=== PATIENT | female | born 1970 | race Caucasian/White ===

== ENCOUNTER 2020-05-14 23:11 | Emergency (ER) | payer MEDICAID ==
[~2020-05-14 23:11] MED LIST: BUSP5TAB51 PO; LURA40TA PO; VENL37.572 PO
[2020-05-14 23:25] VITALS: BP 144/79
[2020-05-14] MEDS ORDERED: HALOPERIDOL LACTATE 5 MG/ML INJ VIAL IM ONE (23:45)
[2020-05-14] MEDS ORDERED: LORazepam 2MG/ML-1ML VIAL IM ONE (23:45)
[2020-05-14] MEDS ORDERED: diphenhdrAMINE HCL 50 MG/1 ML VL IM ONE (23:45)
== END 2020-05-14 23:41 | disposition left against medical advice (07) ==
LOC: ER 23:11
DX: F31.9 Bipolar disorder, unspecified (principal); Z53.21 Procedure and treatment not carried out due to patient leaving prior to being seen by health care provider

== ENCOUNTER 2020-05-15 04:17 | Emergency (ER) | payer MEDICAID ==
[~2020-05-15] VITALS: Ht 165.1 cm; Wt 96.8 kg
[2020-05-15] MEDS ORDERED: HALOPERIDOL 5 MG TAB PO ONE (06:45)
[2020-05-15] MEDS ORDERED: diphenhdrAMINE HCL 25 MG CAP PO ONE (06:45)
[2020-05-15] MEDS ORDERED: HALOPERIDOL LACTATE 5 MG/ML INJ VIAL IM ONE ×2 (13:15→19:45)
[2020-05-15] MEDS ORDERED: diphenhdrAMINE HCL 50 MG/1 ML VL IM ONE ×2 (13:15→19:45)
[2020-05-15] MEDS ORDERED: LORazepam 2MG/ML-1ML VIAL IM ONE (19:45)
[2020-05-16 07:17] VITALS: BP 138/79
[2020-05-16] MEDS ORDERED: LORazepam 0.5 MG TAB PO ONE (08:15)
[2020-05-16] MEDS ORDERED: OLANZapine 5 MG TAB PO ONE (09:15)
[2020-05-16 09:46] LABS: BUN/Creatinine Ratio 13.4; Calcium 9.5 mg/dL (8.5-10.1); Potassium 3.9 mmol/L (3.5-5.1)
[2020-05-16] MEDS ORDERED: busPIRone HCL 10 MG TAB PO SCH (10:00)
[2020-05-16] MEDS ORDERED: VENLAFAXINE HCL 37.5MG TABLET PO SCH (10:00)
== END 2020-05-16 19:25 | disposition home or self-care (01) ==
LOC: EDBD 04:17 → ER 04:17
DX: F20.9 Schizophrenia, unspecified (principal); F31.9 Bipolar disorder, unspecified; I10 Essential (primary) hypertension; Z79.899 Other long term (current) drug therapy
CPT/HCPCS: 36415; 80048; 96372; 99285; J1200; J1630; J2060